=== PATIENT | male | born 1980 | race Caucasian/White ===

== ENCOUNTER 2022-05-21 08:37 | Emergency (ER) | payer OTHER, SELFPAY ==
--- NOTE | 2022-05-21 08:56 | ED_ITS ---
HPI - General Adult General Chief complaint: Dental/Oral Stated complaint: infection in brain Time Seen by Provider: 05/21/22 08:54 Source: patient Mode of arrival: ambulatory History of Present Illness HPI narrative: 41-year-old male with no significant past medical history presenting to the complaining right upper dental pain and facial swelling x 3-4 days. Reports history of dental infection months ago, did not take previously prescribed antibiotics to completion, when fall infection recurring restarted those antibiotics without relief. Reports feels like infection as in his brain. Denies fever, chills, ear pain, oral swelling, difficulty swallowing Onset (ago): day(s) Related Data Allergies Allergy/AdvReac Type Severity Reaction Status Date / Time amoxicillin [Amoxicillin] Allergy Mild RASH Unverified 04/06/20 15:27 codeine [CODEINE] Allergy Unknown UNKNOWN, Unverified 04/06/20 15:27 THINKS HIVES Review of Systems Review of Systems: Constitutional: No Fever, No Chills, No Night Sweats, No Fatigue, No Malaise ENT/Mouth: +dental pain, +facial swelling, No Ear Pain, No Nasal Congestion, No Hoarseness, No sore throat, No Rhinorrhea, No Swallowing Difficulty Eyes: No Eye Pain, No Swelling, No Redness, No Discharge, No Vision Changes Cardiovascular: No Chest Pain, No SOB, No Edema, No Palpitations Respiratory: No Cough, No Sputum, No Dyspnea Gastrointestinal: No Nausea, No Vomiting, No Diarrhea, No Constipation, No Abdominal pain Genitourinary: No Dysuria, No Urinary Frequency, No Hematuria, No Urinary Incontinence/retention, No Flank Pain Musculoskeletal: No joint pain, No Myalgias, No Joint Swelling Skin: No Skin Lesions, No rash Neuro: No Weakness, No Loss of Consciousness, No Dizziness, No Headache Yes all other systems are reviewed and are negative Constitutional: Constitutional: Reports as per [facility] Past Medical History Attestation statement: The following information was validated with the patient. Social History Social History Advance Directives: No Physical Exam ED Vital Signs: Vital Signs - 24 hr 05/21/22 09:02 Pulse Rate 74 Respiratory Rate 18 Blood Pressure 129/78 Pulse Oximetry 100 Oxygen Delivery Method Room Air BMI result Body Mass Index 19.4 Const General: cooperative, healthy appearing and no acute distress Orientation/consciousness: patient oriented x3 Limitations: no limitations HENMT Other: + mild right-sided facial swelling and tenderness noted. No erythema/crepitus or warmth. Poor dentition. Right upper incisor broken, upper gum with small area of fluctuance, no induration Head: Yes normal to inspection and Yes atraumatic Ears: hearing grossly normal bilaterally, external ears normal, TM's normal bilaterally and mastoids normal General nose exam: Normal external nose present Face and sinus: No crepitus Teeth and gingiva: poor dentition Throat: Yes posterior oropharynx normal, Yes tonsils normal, Yes uvula midline, No uvula laterally displaced and No uvular edema Eyes General: appearance normal, both eyes and all related structures EOM: EOMs intact bilaterally Neck Neck: Yes normal visual inspection, Yes no lymphadenopathy, Yes no meningeal signs, Yes trachea midline, Yes supple and No anterior neck swelling Resp Effort & Inspection: normal respiratory effort, no respiratory distress and no stridor Auscultation: clear to auscultation bilaterally Cardio Rate: regular rate Heart sounds: S1 normal heart sound present and S2 normal heart sound present Skin Rashes: no rashes Wounds: no wounds Neuro General: patient oriented x3, tone normal and no meningeal signs Gait exam (Neuro): Normal gait present Extrem General: Yes normal to inspection Course Course Course Narrative: -[id number]--patient became very upset after a few IV times ripped dressing and walked out of the emergency department Medical Decision Making [facility] Narrative Medical decision making narrative: 41-year-old male with no significant past medical history presenting to the complaining right upper dental pain and facial swelling x 3-4 days. On exam vital signs stable, nontoxic appearing, physical exam as above with noted right facial swelling and upper incisor tenderness with small area of fluctuance. Concern for progressive dental abscess vs edema vs cellulitis Plan: Labs, facial CT, IV antibiotics Medical Records Medical records reviewed: Yes I reviewed the patient's medical records. Lab Data Lab results reviewed: Yes I reviewed the patient's lab results. Discharge Plan Discharge Clinical Impression: Dental abscess Patient Disposition: Elopement
[2022-05-21 09:02] VITALS: BP 129/78; PULSE 74; RESP 18; O2SAT 100; BMI 19.4
--- NOTE | 2022-05-21 09:59 | PC.NURSE ---
Karin RN attempting IV accesss unable x2, pt aggressive immediately, stating thats it im done, get this shit off of me pt unwilling to listen to this RN regarding plan and options. Pt left
== END 2022-05-21 10:01 | disposition left against medical advice (07) ==
PROVIDERS: Emergency Provider Emergency Medicine
DX: K04.7 Periapical abscess without sinus (principal); K08.89 Other specified disorders of teeth and supporting structures
CPT/HCPCS: 99281